=== PATIENT | male | born 1965 | race Two or more races ===

== ENCOUNTER 2016-12-26 20:03 | Inpatient (IN) | payer OTHER ==
[~2016-12-26] VITALS: Ht 177.8 cm; Wt 88.7 kg
[2016-12-26 21:33] LABS: BASO % 1 % (0-3); EOS % 4 % (0-3); HEMATOCRIT 41.8 % (39.0-53.0); HEMOGLOBIN 13.5 g/dL (13.0-17.5); LYMPH # 2.6 x10^3/uL (1.0-4.8); LYMPH % 37 % (24-48); MEAN CORPUSCULAR HEMOGLOBIN 27 pg (25-35); MEAN CORPUSCULAR HGB CONC 32 g/dL (31-37); MEAN CORPUSCULAR VOLUME 85 fL (79-100); MONO % 8 % (0-9); NEUT % 49 % (31-73); PLATELET COUNT 242 x10^3/uL (140-400); RED BLOOD COUNT 4.93 x10^6/uL (4.30-5.70); RED CELL DISTRIBUTION WIDTH 13.6 % (11.5-14.5); WHITE BLOOD COUNT 6.9 x10^3/uL (4.0-11.0)
[2016-12-26 21:35] LABS: BILIRUBIN,URINE NEGATIVE (NEG); GLUCOSE,URINE NEGATIVE (NEG); NITRITE,URINE NEGATIVE (NEG); PROTEIN,URINE NEGATIVE (NEG-TRACE); UROBILINOGEN,URINE 0.2 mg/dL (0.2 mg/dL)
[2016-12-26 21:39] LABS: NEG OBC FOB NEG; POS OBC FOB POS
[2016-12-26 21:44] LABS: CREATININE 1.2 mg/dL (0.7-1.3); GFR 63.6; POTASSIUM 4.3 mmol/L (3.5-5.1)
[2016-12-26 21:45] LABS: BACTERIA,URINE 0 /HPF (0-FEW); RBC,URINE 0 /HPF (0-2); SQUAMOUS EPITHELIAL CELL,UR OCC /LPF; WBC,URINE OCC /HPF (0-4)
[2016-12-26 21:48] LABS: PROTHROMBIN TIME PATIENT 12.3 SEC (11.7-14.0)
[2016-12-26 21:51] LABS: ALBUMIN 3.8 g/dL (3.4-5.0); TOTAL BILIRUBIN 0.3 mg/dL (0.2-1.0); TOTAL PROTEIN 7.5 g/dL (6.4-8.2)
[2016-12-26 21:58] LABS: CKMB MASS 1.9 ng/mL (0.0-3.6)
--- NOTE | 2016-12-26 22:12 | PHYS DOC ---
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 Adult General Chief Complaint Chief Complaint: MULTIPLE COMPLAINTS HPI HPI Patient is a 51 year old male who presents with epigastric abdominal pain and blood in his stool. 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 He was here on a long haul. He states that he's been having burning epigastric pain for "a long time. It does radiate into his chest into the left side of his chest. He denies any vomiting. He also has noticed some blood in his stools. He' s been feeling dizzy he states more recently. He has had cough and cold symptoms for which she was treated in [facility] recently. He's been taking Sudafed xlsh-otl-hvsycac and Tessalon Perles. He is presently returning back to [place] in the next day or 2. He does smoke tobacco, he does drink ethanol but denies excessive amounts. Review of Systems Review of Systems Constitutional: Denies fever or chills Eyes: Denies change in visual acuity, redness, or eye pain HENT: POS nasal congestion or sore throat Respiratory: POS cough but no shortness of breath Cardiovascular: POS chest pain. GI: POS abdominal pain, denies nausea, vomiting, POS bloody stools but no diarrhea : Denies dysuria or hematuria Musculoskeletal: Denies back pain or joint pain Integument: Denies rash or skin lesions Neurologic: Denies headache, focal weakness or sensory changes Allergies Allergies Allergies Coded Allergies Type Severity Reaction Last Updated Verified No Known Drug Allergies 12/26/16 No Physical Exam Physical Exam Constitutional: Well developed, well nourished, no acute distress, non-toxic appearance. HENT: Normocephalic, atraumatic, bilateral external ears normal, oropharynx moist, no oral exudates, nose normal. Eyes: PERRLA, EOMI, conjunctiva normal, no discharge. Neck: Normal range of motion, no tenderness, supple, no stridor. Cardiovascular:Heart rate regular rhythm, no murmur Lungs & Thorax: Bilateral breath sounds clear to auscultation Abdomen: Bowel sounds normal, soft, POS tenderness to epigastric area; no rebound or guarding, no masses, no pulsatile masses. Skin: Warm, dry, no erythema, no rash. Back: No tenderness, no CVA tenderness. Extremities: No tenderness, no cyanosis, no clubbing, ROM intact, no edema. Neurologic: Alert and oriented X 3, normal motor function, normal sensory function, no focal deficits noted. Psychologic: Affect normal, judgement normal, mood normal. Current Patient Data Vital Signs Vital Signs Date Time Temp Pulse Resp B/P (MAP) Pulse Ox O2 Delivery O2 Flow Rate FiO2 12/26/16 22:00 84 13 131/94 (106) 100 Room Air 12/26/16 20:15 97.9 97.9 Lab Values Laboratory Tests Test 12/26/16 20:21 12/26/16 20:53 12/26/16 21:35 White Blood Count 6.9 x10^3/uL (4.0-11.0) Red Blood Count 4.93 x10^6/uL (4.30-5.70) Hemoglobin 13.5 g/dL (13.0-17.5) Hematocrit 41.8 % (39.0-53.0) Mean Corpuscular Volume 85 fL (79-100) Mean Corpuscular Hemoglobin 27 pg (25-35) Mean Corpuscular Hemoglobin Concent 32 g/dL (31-37) Red Cell Distribution Width 13.6 % (11.5-14.5) Platelet Count 242 x10^3/uL (140-400) Neutrophils (%) (Auto) 49 % (31-73) Lymphocytes (%) (Auto) 37 % (24-48) Monocytes (%) (Auto) 8 % (0-9) Eosinophils (%) (Auto) 4 % (0-3) H Basophils (%) (Auto) 1 % (0-3) Neutrophils # (Auto) 3.4 x10^3uL (1.8-7.7) Lymphocytes # (Auto) 2.6 x10^3/uL (1.0-4.8) Monocytes # (Auto) 0.6 x10^3/uL (0.0-1.1) Eosinophils # (Auto) 0.3 x10^3/uL (0.0-0.7) Basophils # (Auto) 0.0 x10^3/uL (0.0-0.2) Prothrombin Time 12.3 SEC (11.7-14.0) Prothrombin Time INR 1.0 (0.8-1.1) PTT 30 SEC (24-38) Sodium Level 137 mmol/L (136-145) Potassium Level 4.3 mmol/L (3.5-5.1) Chloride Level 100 mmol/L (98-107) Carbon Dioxide Level 31 mmol/L (21-32) Anion Gap 6 (6-14) Blood Urea Nitrogen 21 mg/dL (8-26) Creatinine 1.2 mg/dL (0.7-1.3) Estimated GFR (Cockcroft-Gault) 63.6 BUN/Creatinine Ratio 18 (6-20) Glucose Level 134 mg/dL (70-99) H Calcium Level 9.0 mg/dL (8.5-10.1) Total Bilirubin 0.3 mg/dL (0.2-1.0) Aspartate Amino Transferase (AST) 19 U/L (15-37) Alanine Aminotransferase (ALT) 43 U/L (16-63) Alkaline Phosphatase 78 U/L (46-116) Creatine Kinase 80 U/L (39-308) Creatine Kinase MB (Mass) 1.9 ng/mL (0.0-3.6) Creatine Kinase MB Relative Index 2.4 % (0-4) Troponin I Quantitative < 0.017 ng/mL (0.000-0.055) Total Protein 7.5 g/dL (6.4-8.2) Albumin 3.8 g/dL (3.4-5.0) Albumin/Globulin Ratio 1.0 (1.0-1.7) Lipase 2380 U/L (73-393) H Urine Color Yellow Urine Clarity Clear Urine pH 6.0 Urine Specific [place] 1.010 Urine Protein Negative mg/dL (NEG-TRACE) Urine Glucose (UA) Negative mg/dL (NEG) Urine Ketones (Stick) Negative mg/dL (NEG) Urine Blood Negative (NEG) Urine Nitrite Negative (NEG) Urine Bilirubin Negative (NEG) Urine Urobilinogen Dipstick 0.2 mg/dL (0.2 mg/dL) Urine Leukocyte Esterase Negative (NEG) Urine RBC 0 /HPF (0-2) Urine WBC Occ /HPF (0-4) Urine Squamous Epithelial Cells Occ /LPF Urine Bacteria 0 /HPF (0-FEW) Stool Occult Blood Negative (NEG) D-Dimer (Naz) 0.27 ug/mlFEU (0.00-0.50) Laboratory Tests 12/26/16 20:21 Laboratory Tests 12/26/16 20:21 EKG EKG EKG interpreted by myself at 2204 PM:m normal sinus rhythm rate of 80. Flipped T waves noted (I, aVL, V1-V6). No prior EKG to compare to. No ST elevation. Radiology/Procedures Radiology/Procedures Chest xray: Interpreted by myself at 2200 PM no pleural effusion, no infiltrate , no obvious sternum, no pneumothorax. [facility] [address] [place], [place] [id number] IMAGING REPORT Signed PATIENT: AURELIA DUMAS ACCOUNT: [id number] : 1965 LOCATION: ER AGE: 51 SEX: M EXAM STATUS: REG ER ORD. PHYSICIAN: EDITH FLORES MD REASON: elev lipase; epigastric pain PROCEDURE: CT ABD PELV W/ IV CONTRST ONLY CT ABD PELV W/ IV CONTRST ONLY dated 12/26/2016 10:20 PM Indication: Abdominal pain, dark stools symptoms for 5 days. Comparison: No comparison is available. Technique: Contiguous axial imaging of the abdomen and pelvis performed after the intravenous and demonstration of 75 cc Omnipaque 300. One or more of the following individualized dose reduction techniques were utilized for this examination: 1. Automated exposure control 2. Adjustment of the mA and/or kV according to patient size 3. Use of iterative reconstruction technique Findings: Limited images of lung bases are clear. Heart size within normal limits. No pleural or pericardial effusion. Liver, spleen, pancreas, adrenal glands, gallbladder and kidneys are unremarkable. No hydronephrosis. Unopacified GI tract is normal in caliber and contour. No focal bowel wall thickening. No inflammatory stranding in the mesentery. The appendix is normal in caliber. No ascites or lymphadenopathy. Images of pelvis a nondistended urinary bladder. Prostate gland normal in size. No free pelvic fluid or pelvic lymphadenopathy. There are a few scattered diverticula throughout the colon. Bone windows show no acute findings. Mild multilevel spondylosis. IMPRESSION: 1. No acute abnormality of abdomen or pelvis. Normal appendix. 2. Diverticulosis with no evidence of acute diverticulitis. Electronically signed by: Jorge Castillo MD (12/26/2016 11:01 PM) [facility] DICTATED and SIGNED BY: JORGE CASTILLO MD DATE: 12/26/16 5153 CC: EDITH FLORES MD; UNKNOWN PCP NAME ~ Course & Med Decision Making Course & Med Decision Making Evaluated patient upon my arrival on shift. IV NS, lab ordered. At 2215 PM: lipase very elevated. CT ordered. At 2300 PM: discussed with patient need for hospitalization. HE IS REFUSING TO STAY. HE STATES HE HAS AN APPT "BACK HOME" ON MONDAY. HE UNDERSTANDS RISK OF LEAVING (PERMANENT DISABILITY; COMA; ). HE WAS INSTRUCTED TO SEEK MEDICAL ATTENTION IMMEDIATELY IF HIS SYMPTOMS WORSEN. COPY OF HIS CT WAS SENT WITH HIM. At 2330 PM: PATIENT NOW DECIDED TO STAY AND BE ADMITTED. I have spoken with the patient and/or caregivers. I have explained the patient' s condition, diagnosis and treatment plan based on the information available to me at this time. I have answered the patient's and/or caregiver's questions and addressed any concerns. The patient and/or caregivers have as good an understanding of the patient's diagnosis, condition and treatment plan as can be expected at this point. The patient has been stabilized within the capability of the emergency department. The patient will be transported for further care and management or will be moved to an observation or inpatient service. I have communicated with the staff or medical practitioner taking over this patient's care. I have assessed this patient clinically and believe that their condition requires admission to the hospital. After consulting the admitting physician about this case, they have asked that I admit this patient to their service as an inpatient based on the clinical presentation and my impression. My differential for abdominal pain includes but is not limited to appendicitis; cholelithiasis or cholecystitis; renal stones; ureterolithiasis; pancreatitis; urinary tract infection; bowel obstruction; irritable bowel.Differential diagnosis for chest pain includes but is not limited to: Pericarditis, myocarditis, endocarditis, pneumothorax, pneumonia, aortic dissection, esophageal spasm, esophagitis, peptic ulcer disease, acute coronary syndrome, mediastinitis, Boerhaave syndrome, musculoskeletal chest wall pain, costochondritis, intercostal strain, rib fracture, pulmonary contusion, pneumonitis, pleural effusion, pericardial effusion, pericardial tamponode, and pleurisy. [place] Criteria; WBC >16-NO Age >55-NO Glucose >200-NO AST >250-NO LDH >350-NA MACE Scoring: History: Highly suspicious (2 points); Moderately suspicious (1 point). Slightly suspicious (0 point). EKG: ST segment depression (2 points). Nonspecific repolarization disturbance ( 1 point). normal (0 point) Age: Greater than 65 (2 points), 65-45 (1 point); less than 45 years old (0 points). Risk factors:> 3 risk factors (2 points), 1-2 risk factors (one point), no risk factors (0 point). Troponin: > 2 times normal (2 points), 1-2 times normal (1 point) normal limits (0 point) Total score: ___4___ Score % pts MACE/n MACE Policy 0-3: 32% 1.9% 0.05% Discharge 4-6: 51% 413/3136 13% 1.3% Observation Risk management 7-10: 17% 518/1045 50% 2.8% Observation Treatment, CAGb PERC Criteria Assessment: Age > 50: YES HR > 100: No 02 < 95%: No H/o DVT/PE: No Recent trauma/surgery: No (travel) Hemoptysis No Exogenous Estrogen: No Unilateral Leg swelling: No Pretest probability > 15%: YES Less than 2% risk of PE. No further work up is necessary PERC rule not satified My TREVOR score TREVOR score for NSTEMI: Age 65: No=0; Yes=1 3 CAD risk factors: Family history of CAD, hypertension, hypercholesterolemia, diabetes, family history of CAD, or current smoker: No=0; Yes=1 Known CAD (stenosis 50%: No=0; Yes=1 ASA use in past 7 days: No=0; Yes=1 Severe angina ( 2 episodes in 24 hrs): No=0; Yes=[address] changes 0.5m: No=0; Yes=1 Positive cardiac marker: No=0; Yes=1 Score:1 Dragon Disclaimer Dragon Disclaimer This electronic medical record was generated, in whole or in part, using a voice recognition dictation system. Departure Departure Impression: Primary Impression: Acute pancreatitis Disposition: 09 ADMITTED INPATIENT Admitting Physician: Tim Segundo Condition: STABLE Referrals: UNKNOWN PCP NAME (PCP) Problem Qualifiers Primary Impression: Acute pancreatitis Pancreatitis type: unspecified pancreatitis type Acute pancreatitis complication: no infection or necrosis Qualified Codes: K85.90 - Acute pancreatitis without necrosis or infection, unspecified EDITH FLORES MD Dec 26, 2016 22:12
[2016-12-26] MEDS ORDERED: IOHEXOL 300 MG/ML 75 ML VIAL IV ONE (22:30)
[2016-12-26] MEDS ORDERED: CONTRAST GIVEN MC PRN (22:30)
--- NOTE | 2016-12-26 23:04 | RAD ---
CT ABD PELV W/ IV CONTRST ONLY dated 12/26/2016 10:20 PM Indication: Abdominal pain, dark stools symptoms for 5 days. Comparison: No comparison is available. Technique: Contiguous axial imaging of the abdomen and pelvis performed after the intravenous and demonstration of 75 cc Omnipaque 300. One or more of the following individualized dose reduction techniques were utilized for this examination: 1. Automated exposure control 2. Adjustment of the mA and/or kV according to patient size 3. Use of iterative reconstruction technique Findings: Limited images of lung bases are clear. Heart size within normal limits. No pleural or pericardial effusion. Liver, spleen, pancreas, adrenal glands, gallbladder and kidneys are unremarkable. No hydronephrosis. Unopacified GI tract is normal in caliber and contour. No focal bowel wall thickening. No inflammatory stranding in the mesentery. The appendix is normal in caliber. No ascites or lymphadenopathy. Images of pelvis a nondistended urinary bladder. Prostate gland normal in size. No free pelvic fluid or pelvic lymphadenopathy. There are a few scattered diverticula throughout the colon. Bone windows show no acute findings. Mild multilevel spondylosis. IMPRESSION: 1. No acute abnormality of abdomen or pelvis. Normal appendix. 2. Diverticulosis with no evidence of acute diverticulitis. Electronically signed by: Jorge Castillo MD (12/26/2016 11:01 PM) [facility]
[2016-12-26] MEDS ORDERED: MORPHINE SULFATE 2 MG/ML DISP.SYRIN. IV PRN (23:15)
[2016-12-26] MEDS ORDERED: ONDANSETRON PF 4 MG/2 ML VIAL. IV PRN (23:15)
[2016-12-27] VITALS: BP 125/97
[2016-12-27] MEDS ORDERED: LISI-334 PO (01:42)
[2016-12-27] MEDS ORDERED: METF-620 PO (01:42)
[2016-12-27 03:00] VITALS: BP 111/74
[2016-12-27 07:00] VITALS: BP 119/79
--- NOTE | 2016-12-27 07:04 | EKG ---
[facility] [address] [place] [address] Test Date: 2016-12-26 Test Time: 22:04:01 Pat Name: AURELIA DUMAS Department: Room: 416 Gender: M Neurosurgical Nurse: : 1965 Requested By: EDITH FLORES Order Number: [id number] Reading MD: Sommer Fajardo Measurements Intervals [place] Rate: 80 P: 21 NM: 142 QRS: -4 QRSD: 90 T: 111 QT: 360 QTc: 419 Interpretive Statements SINUS RHYTHM LEFTWARD AXIS QRS(T) CONTOUR ABNORMALITY CONSISTENT WITH ANTEROSEPTAL INFARCT AGE UNDETERMINED ST & T ABNORMALITY, CONSIDER HIGH LATERAL ISCHEMIA OR LEFT VENTRICULAR STRAIN T ABNORMALITY IN ANTERIOR LEADS ABNORMAL ECG Electronically Signed On 12-27-2016 19:57:25 CDT by Sommer Fajardo
[2016-12-27] MEDS: POTASSIUM CL 20MEQ D5-0.45NACL 1,000 ML IV SCH ×2 (08:00)
--- NOTE | 2016-12-27 08:41 | RAD ---
Chest radiograph 12/26/2016 11:25 PM Indication: Cough, fever Comparison: None available Technique: Single portable upright frontal view of the chest is provided. Findings: Cardiomediastinal silhouette is within normal limits. No pleural effusions, pulmonary vascular congestion or pneumothorax. The lungs are clear. Mild osteoarthrosis of the right glenohumeral joint. Impression: No acute cardiopulmonary process.
--- NOTE | 2016-12-27 09:07 | PDOC2 ---
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 Came to ER w/ concern of black stools (a couple "soft" stools daily) x 2-4 days. Also has upper abd discomfort , worse after eating - this is an ongoing symptoms he is not concerned with. Labs significant for lipase 2380 w/ normal Hgb and BUN. Fecal occult was negative. CT unrevealing for acute issue. H/o rare reflux, untreated. No n/v. No diarrhea or constipation. No hematochezia. No weight loss. No liver, gallbladder, or pancreas history. No NSAID use although has been taking prescription and OTC meds for cough/cold. No previous EGD or colonoscopy. He has an appointment w/ a PCP on Monday and would like to leave today and go back to work. PMH: PMH: DM, HTN, HLD, depression FH: Family History: No pertinent hx (denies GI cancers) Social History: Smoke: <1 pack per day ALCOHOL: occassional Drugs: None ROS: GEN: Denies fevers, chills, sweats HEENT: +congestion CV: Denies chest pain RESP: +cough GI: Per HPI : Denies hematuria, dysuria ENDO: Denies weight changes NEURO: Denies confusion, dizziness MSK: Denies weakness, joint pain/swelling SKIN: Denies jaundice, pruritus Vitals: Vitals: Vital Signs Date Time Temp Pulse Resp B/P (MAP) Pulse Ox O2 Delivery O2 Flow Rate FiO2 12/27/16 07:00 98.0 69 14 119/79 (92) 98 Room Air 98.0 Labs: Labs: Laboratory Tests Test 12/26/16 20:21 12/26/16 20:53 12/26/16 21:35 White Blood Count 6.9 x10^3/uL (4.0-11.0) Red Blood Count 4.93 x10^6/uL (4.30-5.70) Hemoglobin 13.5 g/dL (13.0-17.5) Hematocrit 41.8 % (39.0-53.0) Mean Corpuscular Volume 85 fL (79-100) Mean Corpuscular Hemoglobin 27 pg (25-35) Mean Corpuscular Hemoglobin Concent 32 g/dL (31-37) Red Cell Distribution Width 13.6 % (11.5-14.5) Platelet Count 242 x10^3/uL (140-400) Neutrophils (%) (Auto) 49 % (31-73) Lymphocytes (%) (Auto) 37 % (24-48) Monocytes (%) (Auto) 8 % (0-9) Eosinophils (%) (Auto) 4 % (0-3) Basophils (%) (Auto) 1 % (0-3) Neutrophils # (Auto) 3.4 x10^3uL (1.8-7.7) Lymphocytes # (Auto) 2.6 x10^3/uL (1.0-4.8) Monocytes # (Auto) 0.6 x10^3/uL (0.0-1.1) Eosinophils # (Auto) 0.3 x10^3/uL (0.0-0.7) Basophils # (Auto) 0.0 x10^3/uL (0.0-0.2) Prothrombin Time 12.3 SEC (11.7-14.0) Prothromb Time International Ratio 1.0 (0.8-1.1) Activated Partial Thromboplast Time 30 SEC (24-38) Sodium Level 137 mmol/L (136-145) Potassium Level 4.3 mmol/L (3.5-5.1) Chloride Level 100 mmol/L (98-107) Carbon Dioxide Level 31 mmol/L (21-32) Anion Gap 6 (6-14) Blood Urea Nitrogen 21 mg/dL (8-26) Creatinine 1.2 mg/dL (0.7-1.3) Estimated GFR (Cockcroft-Gault) 63.6 BUN/Creatinine Ratio 18 (6-20) Glucose Level 134 mg/dL (70-99) Calcium Level 9.0 mg/dL (8.5-10.1) Total Bilirubin 0.3 mg/dL (0.2-1.0) Aspartate Amino Transf (AST/SGOT) 19 U/L (15-37) Alanine Aminotransferase (ALT/SGPT) 43 U/L (16-63) Alkaline Phosphatase 78 U/L (46-116) Creatine Kinase 80 U/L (39-308) Creatine Kinase MB (Mass) 1.9 ng/mL (0.0-3.6) Creatine Kinase MB Relative Index 2.4 % (0-4) Troponin I Quantitative < 0.017 ng/mL (0.000-0.055) Total Protein 7.5 g/dL (6.4-8.2) Albumin 3.8 g/dL (3.4-5.0) Albumin/Globulin Ratio 1.0 (1.0-1.7) Lipase 2380 U/L (73-393) Urine Color Yellow Urine Clarity Clear Urine pH 6.0 Urine Specific [place] 1.010 Urine Protein Negative mg/dL (NEG-TRACE) Urine Glucose (UA) Negative mg/dL (NEG) Urine Ketones (Stick) Negative mg/dL (NEG) Urine Blood Negative (NEG) Urine Nitrite Negative (NEG) Urine Bilirubin Negative (NEG) Urine Urobilinogen Dipstick 0.2 mg/dL (0.2 mg/dL) Urine Leukocyte Esterase Negative (NEG) Urine RBC 0 /HPF (0-2) Urine WBC Occ /HPF (0-4) Urine Squamous Epithelial Cells Occ /LPF Urine Bacteria 0 /HPF (0-FEW) Stool Occult Blood Negative (NEG) D-Dimer (Naz) 0.27 ug/mlFEU (0.00-0.50) Allergies: Coded Allergies: No Known Drug Allergies (Unverified , 12/26/16) Medications: Current Medications Medications (Trade) Dose Ordered Sig/Luther Route PRN Reason Start Time Stop Time Status Last Admin Dose Admin Iohexol (Omnipaque 300 Mg/ml) 75 ml 1X ONCE IV 12/26/16 22:30 12/26/16 22:31 DC 12/26/16 22:21 Ondansetron HCl (Zofran) 4 mg PRN Q8HRS PRN IV NAUSEA/VOMITING 12/26/16 23:15 12/27/16 23:14 12/27/16 00:35 Morphine Sulfate 2 mg PRN Q2HR PRN IV PAIN 12/26/16 23:15 12/27/16 23:14 12/27/16 00:36 Potassium Chloride/Dextrose/ Sod Cl 1,000 ml @ 125 mls/hr Q8H IV 12/27/16 00:00 12/27/16 00:00 Imaging: Imaging: CXR Impression: No acute cardiopulmonary process. CT A/P w/ IV contrast Findings: Limited images of lung bases are clear. Heart size within normal limits. No pleural or pericardial effusion. Liver, spleen, pancreas, adrenal glands, gallbladder and kidneys are unremarkable. No hydronephrosis. Unopacified GI tract is normal in caliber and contour. No focal bowel wall thickening. No inflammatory stranding in the mesentery. The appendix is normal in caliber. No ascites or lymphadenopathy. Images of pelvis a nondistended urinary bladder. Prostate gland normal in size. No free pelvic fluid or pelvic lymphadenopathy. There are a few scattered diverticula throughout the colon. Bone windows show no acute findings. Mild multilevel spondylosis. IMPRESSION: 1. No acute abnormality of abdomen or pelvis. Normal appendix. 2. Diverticulosis with no evidence of acute diverticulitis. PE: GEN: NAD HEENT: Atraumatic, PERRL LUNGS: CTAB HEART: RRR ABD: NABS, S/ND, mild LLQ pain EXTREMITY: No edema SKIN: No rashes, no jaundice NEURO/PSYCH: A & O 3 A/P: A/P: Abd pain -ongoing for awhile, worse after eating "Black stool" -normal Hgb, BUN, and fecal occult neg Elevated lipase -normal pancreas on CT Acid reflux -rare, untreated -no previous EGD CRC screen -no previous colonoscopy -- He wants to discharge back to work and follow-up w/ PCP on Monday. Reviewed w/ Dr. Vo - offered EGD; pt declined, told RN he would leave in 15 -20 min. Would also be reasonable to check abd US r/o cholelithiasis w/ elevated lipase and abd pain; will not order considering his plans to leave. BELEN GOTTLIEB Dec 27, 2016 09:07
[2016-12-27 11:00] VITALS: BP 123/90
--- NOTE | 2016-12-27 13:15 | PDOC1 ---
History and Physical Date of Admission Date of Admission 12/26/16 Identification/Chief Complaint Chief Complaint melena Problems: Source Source: Chart review, Patient History of Present Illness History of Present Illness Patient is a 51 year old male who presents with epigastric abdominal pain and melena for 3 days. Pt said he has had epigastric abd pain for a few weeks, no radiation, moderate. He actually really concern about black stool daily for 3 days, some times a little bit blood. He said it is because he drink some "booster". takes NSAIDS once a week. denies heavy drinker, but admitted drank heavily 2 weeks ago in [place]. 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 in ER, Lipase 2380, down to 1000 today. Hb 13, fobt neg in ER. Past Medical History Cardiovascular: HTN Endocrine: Diabetes Past Surgical History Past Surgical History: No pertinent history Family History Family History: High Cholestrol Social History Smoke: <1 pack per day ALCOHOL: occassional Drugs: None Current Problem List Problem List Problems Medical Problems: (1) Acute pancreatitis Status: Acute Current Medications Current Medications Current Medications Medications (Trade) Dose Ordered Sig/Luther Start Time Stop Time Status Last Admin Dose Admin Info (Do NOT chart on this entry -- for MONITORING) 1 each PRN DAILY PRN 12/26/16 22:30 12/28/16 22:29 Iohexol (Omnipaque 300 Mg/ml) 75 ml 1X ONCE 12/26/16 22:30 12/26/16 22:31 DC 12/26/16 22:21 75 ML Morphine Sulfate 2 mg PRN Q2HR PRN 12/26/16 23:15 12/27/16 23:14 12/27/16 00:36 2 MG Ondansetron HCl (Zofran) 4 mg PRN Q8HRS PRN 12/26/16 23:15 12/27/16 23:14 12/27/16 00:35 4 MG Potassium Chloride/Dextrose/ Sod Cl 1,000 ml @ 125 mls/hr Q8H 12/27/16 00:00 12/27/16 00:00 125 MLS/HR Allergies Allergies Allergies Coded Allergies Type Severity Reaction Last Updated Verified No Known Drug Allergies 12/26/16 No ROS Review of System CONSTITUTIONAL: No fever or chills EYES: No recent changes SKIN: No rash or itching CARDIOVASCULAR: No chest pain, syncope, palpitations, or edema RESPIRATORY: No SOB or cough GASTROINTESTINAL: No nausea, vomiting or abdominal pain NEUROLOGICAL: No headaches or weakness ENDOCRINE: No cold or heat intolerance GENITOURINARY: No urgency or frequency of urination MUSCULOSKELETAL: No back pain or joint pain LYMPHATICS: No enlarged lymph nodes PSYCHIATRIC: No anxiety or depression Physical Exam Physical Exam GEN.: No apparent distress. Alert and oriented. HEENT: Head is normocephalic, atraumatic NECK: Supple. LUNGS: Clear to auscultation. HEART: RRR, S1, S2 present. Peripheral pulses intact ABDOMEN: Soft, nontender. Positive bowel sounds. EXTREMITIES: Without any cyanosis. NEUROLOGIC: Normal speech, normal tone PSYCHIATRIC: Normal affect, normal mood. SKIN: No ulcerations Vitals Vitals Vital Signs Date Time Temp Pulse Resp B/P (MAP) Pulse Ox O2 Delivery O2 Flow Rate FiO2 12/27/16 11:00 98.3 72 18 123/90 (101) 100 Room Air 98.3 Labs Labs Laboratory Tests Test 12/26/16 20:21 12/26/16 20:53 12/26/16 21:35 12/27/16 08:55 White Blood Count 6.9 x10^3/uL (4.0-11.0) Red Blood Count 4.93 x10^6/uL (4.30-5.70) Hemoglobin 13.5 g/dL (13.0-17.5) Hematocrit 41.8 % (39.0-53.0) Mean Corpuscular Volume 85 fL (79-100) Mean Corpuscular Hemoglobin 27 pg (25-35) Mean Corpuscular Hemoglobin Concent 32 g/dL (31-37) Red Cell Distribution Width 13.6 % (11.5-14.5) Platelet Count 242 x10^3/uL (140-400) Neutrophils (%) (Auto) 49 % (31-73) Lymphocytes (%) (Auto) 37 % (24-48) Monocytes (%) (Auto) 8 % (0-9) Eosinophils (%) (Auto) 4 % (0-3) Basophils (%) (Auto) 1 % (0-3) Neutrophils # (Auto) 3.4 x10^3uL (1.8-7.7) Lymphocytes # (Auto) 2.6 x10^3/uL (1.0-4.8) Monocytes # (Auto) 0.6 x10^3/uL (0.0-1.1) Eosinophils # (Auto) 0.3 x10^3/uL (0.0-0.7) Basophils # (Auto) 0.0 x10^3/uL (0.0-0.2) Prothrombin Time 12.3 SEC (11.7-14.0) Prothromb Time International Ratio 1.0 (0.8-1.1) Activated Partial Thromboplast Time 30 SEC (24-38) Sodium Level 137 mmol/L (136-145) Potassium Level 4.3 mmol/L (3.5-5.1) Chloride Level 100 mmol/L (98-107) Carbon Dioxide Level 31 mmol/L (21-32) Anion Gap 6 (6-14) Blood Urea Nitrogen 21 mg/dL (8-26) Creatinine 1.2 mg/dL (0.7-1.3) Estimated GFR (Cockcroft-Gault) 63.6 BUN/Creatinine Ratio 18 (6-20) Glucose Level 134 mg/dL (70-99) Calcium Level 9.0 mg/dL (8.5-10.1) Total Bilirubin 0.3 mg/dL (0.2-1.0) Aspartate Amino Transf (AST/SGOT) 19 U/L (15-37) Alanine Aminotransferase (ALT/SGPT) 43 U/L (16-63) Alkaline Phosphatase 78 U/L (46-116) Creatine Kinase 80 U/L (39-308) Creatine Kinase MB (Mass) 1.9 ng/mL (0.0-3.6) Creatine Kinase MB Relative Index 2.4 % (0-4) Troponin I Quantitative < 0.017 ng/mL (0.000-0.055) Total Protein 7.5 g/dL (6.4-8.2) Albumin 3.8 g/dL (3.4-5.0) Albumin/Globulin Ratio 1.0 (1.0-1.7) Lipase 2380 U/L (73-393) 1083 U/L (73-393) Urine Color Yellow Urine Clarity Clear Urine pH 6.0 Urine Specific [place] 1.010 Urine Protein Negative mg/dL (NEG-TRACE) Urine Glucose (UA) Negative mg/dL (NEG) Urine Ketones (Stick) Negative mg/dL (NEG) Urine Blood Negative (NEG) Urine Nitrite Negative (NEG) Urine Bilirubin Negative (NEG) Urine Urobilinogen Dipstick 0.2 mg/dL (0.2 mg/dL) Urine Leukocyte Esterase Negative (NEG) Urine RBC 0 /HPF (0-2) Urine WBC Occ /HPF (0-4) Urine Squamous Epithelial Cells Occ /LPF Urine Bacteria 0 /HPF (0-FEW) Stool Occult Blood Negative (NEG) D-Dimer (Naz) 0.27 ug/mlFEU (0.00-0.50) Laboratory Tests Test 12/26/16 20:21 12/26/16 20:53 12/26/16 21:35 12/27/16 08:55 White Blood Count 6.9 x10^3/uL (4.0-11.0) Red Blood Count 4.93 x10^6/uL (4.30-5.70) Hemoglobin 13.5 g/dL (13.0-17.5) Hematocrit 41.8 % (39.0-53.0) Mean Corpuscular Volume 85 fL (79-100) Mean Corpuscular Hemoglobin 27 pg (25-35) Mean Corpuscular Hemoglobin Concent 32 g/dL (31-37) Red Cell Distribution Width 13.6 % (11.5-14.5) Platelet Count 242 x10^3/uL (140-400) Neutrophils (%) (Auto) 49 % (31-73) Lymphocytes (%) (Auto) 37 % (24-48) Monocytes (%) (Auto) 8 % (0-9) Eosinophils (%) (Auto) 4 % (0-3) Basophils (%) (Auto) 1 % (0-3) Neutrophils # (Auto) 3.4 x10^3uL (1.8-7.7) Lymphocytes # (Auto) 2.6 x10^3/uL (1.0-4.8) Monocytes # (Auto) 0.6 x10^3/uL (0.0-1.1) Eosinophils # (Auto) 0.3 x10^3/uL (0.0-0.7) Basophils # (Auto) 0.0 x10^3/uL (0.0-0.2) Prothrombin Time 12.3 SEC (11.7-14.0) Prothromb Time International Ratio 1.0 (0.8-1.1) Activated Partial Thromboplast Time 30 SEC (24-38) Sodium Level 137 mmol/L (136-145) Potassium Level 4.3 mmol/L (3.5-5.1) Chloride Level 100 mmol/L (98-107) Carbon Dioxide Level 31 mmol/L (21-32) Anion Gap 6 (6-14) Blood Urea Nitrogen 21 mg/dL (8-26) Creatinine 1.2 mg/dL (0.7-1.3) Estimated GFR (Cockcroft-Gault) 63.6 BUN/Creatinine Ratio 18 (6-20) Glucose Level 134 mg/dL (70-99) Calcium Level 9.0 mg/dL (8.5-10.1) Total Bilirubin 0.3 mg/dL (0.2-1.0) Aspartate Amino Transf (AST/SGOT) 19 U/L (15-37) Alanine Aminotransferase (ALT/SGPT) 43 U/L (16-63) Alkaline Phosphatase 78 U/L (46-116) Creatine Kinase 80 U/L (39-308) Creatine Kinase MB (Mass) 1.9 ng/mL (0.0-3.6) Creatine Kinase MB Relative Index 2.4 % (0-4) Troponin I Quantitative < 0.017 ng/mL (0.000-0.055) Total Protein 7.5 g/dL (6.4-8.2) Albumin 3.8 g/dL (3.4-5.0) Albumin/Globulin Ratio 1.0 (1.0-1.7) Lipase 2380 U/L (73-393) 1083 U/L (73-393) Urine Color Yellow Urine Clarity Clear Urine pH 6.0 Urine Specific [place] 1.010 Urine Protein Negative mg/dL (NEG-TRACE) Urine Glucose (UA) Negative mg/dL (NEG) Urine Ketones (Stick) Negative mg/dL (NEG) Urine Blood Negative (NEG) Urine Nitrite Negative (NEG) Urine Bilirubin Negative (NEG) Urine Urobilinogen Dipstick 0.2 mg/dL (0.2 mg/dL) Urine Leukocyte Esterase Negative (NEG) Urine RBC 0 /HPF (0-2) Urine WBC Occ /HPF (0-4) Urine Squamous Epithelial Cells Occ /LPF Urine Bacteria 0 /HPF (0-FEW) Stool Occult Blood Negative (NEG) D-Dimer (Naz) 0.27 ug/mlFEU (0.00-0.50) VTE Prophylaxis Ordered VTE Prophylaxis Devices: No VTE Pharmacological Prophylaxi: Yes Assessment/Plan Assessment/Plan abd pain with acute pancreatitis, etiology not clear melena, neg FOBT so far htn dm2 tobaccoism plan: gi consulted, recommend egd, but pt refused since he wanna go home today lipase much better, no abd pain, hb stable, FOBT neg x1 ok to dc and fu with PCP in [place] on monday, recommend EGD if cont melena, avoid ETOH. may need RUQ US to make sure no gallstone too. RAVEN SEGURA MD Dec 27, 2016 13:15
--- NOTE | 2016-12-27 13:15 | PDOC3 ---
Discharge Summary [facility] Date of Admission: Dec 26, 2016 Discharge Date: Dec 27, 2016 Admitting Diagnosis abd pain with acute pancreatitis, etiology not clear melena, neg FOBT so far htn dm2 tobaccoism Problems: Final Diagnosis CONSULTS gi Brief Hospital Course Patient is a 51 year old male who presents with epigastric abdominal pain and melena for 3 days. Pt said he has had epigastric abd pain for a few weeks, no radiation, moderate. He actually really concern about black stool daily for 3 days, some times a little bit blood. He said it is because he drink some "booster". takes NSAIDS once a week. denies heavy drinker, but admitted drank heavily 2 weeks ago in [place]. 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 in ER, Lipase 2380, down to 1083 today. Hb 13, fobt neg in ER. gi consulted, recommend egd, but pt refused since he wanna go home today lipase much better, no abd pain, hb stable, FOBT neg x1 ok to dc and fu with PCP in [place] on monday, recommend EGD if cont melena, avoid ETOH. may need RUQ US to make sure no gallstone too. dc time 35min Problems: Disposition home CONDITION AT DISCHARGE: Improved Diet regular Scheduled Lisinopril (Lisinopril), 1 TAB PO DAILY, (Reported) Metformin Hcl (Metformin Hcl), 1,000 MG PO DAILYWBKFT, (Reported) Follow Up pcp this week RAVEN SEGURA MD Dec 27, 2016 13:15
== END 2016-12-27 11:30 | disposition home or self-care (01) | DRG 439 ==
LOC: ER 20:03 → 4 NORTH 22:25
PROVIDERS: ADMIT Internal Medicine; ATTEND Internal Medicine
DX: K85.90 Acute pancreatitis without necrosis or infection, unspecified (principal); K92.1 Melena; E11.9 Type 2 diabetes mellitus without complications; E78.00 Pure hypercholesterolemia, unspecified; E78.5 Hyperlipidemia, unspecified; F17.210 Nicotine dependence, cigarettes, uncomplicated; F32.9 Major depressive disorder, single episode, unspecified; I10 Essential (primary) hypertension; K57.90 Diverticulosis of intestine, part unspecified, without perforation or abscess without bleeding; K21.9 Gastro-esophageal reflux disease without esophagitis
CPT/HCPCS: 36415; 71010; 74177; 80053; 81001; 82274; 82550; 82553; 83690; 84484; 85025; 85379; 85610; 85730; 93005; J2270; J2405; Q9967; 99285-25